=== PATIENT | female | born 1955 | race Caucasian/White ===

== ENCOUNTER 2017-11-21 15:24 | Emergency (ER) | payer MEDICARE, MEDICAID ==
[~2017-11-21] VITALS: Ht 160 cm; Wt 105.2 kg
[~2017-11-21 15:24] MED LIST: CYMBALTA60 MG PO; FLONASE 0.05%50 MCG NASAL; HYDROXYCHLOROQ200 M1 PO; HYDROXYZINE HCL25 M1 PO; LEVAQUIN 500 M500 M2 PO; MOBIC7.5 MG PO; OMEPRAZOLE20 M1 PO; PREDNISONE 10 M10 MG PO; PROAIR HFA8.5 GM INH; PROMETHAZINE D480 ML PO; TRAMADOL 50 MG50 MG PO; TRAZODONE HCL50 MG; ZPAK PO
[2017-11-21] MEDS ORDERED: CYMBALTA60 MG PO (15:49)
[2017-11-21 17:32] VITALS: BP 153/72
== END 2017-11-21 17:33 | disposition home or self-care (01) ==
LOC: M.ERS 15:24
DX: M54.5 Low back pain (principal); J45.909 Unspecified asthma, uncomplicated; M19.90 Unspecified osteoarthritis, unspecified site; K21.9 Gastro-esophageal reflux disease without esophagitis; Z88.6 Allergy status to analgesic agent; F17.210 Nicotine dependence, cigarettes, uncomplicated; Z88.8 Allergy status to other drugs, medicaments and biological substances

== ENCOUNTER 2018-04-28 20:28 | Emergency (ER) | payer MEDICARE, MEDICAID ==
[~2018-04-28] VITALS: Ht 160 cm; Wt 106.6 kg
[2018-04-28] MEDS ORDERED: NORCO 5-325 TA1 EAC1 PO (20:48)
[2018-04-28 21:23] VITALS: BP 166/80
== END 2018-04-28 21:24 | disposition home or self-care (01) ==
LOC: M.ERS 20:28
DX: T22.111A Burn of first degree of right forearm, initial encounter (principal); T31.0 Burns involving less than 10% of body surface; F17.210 Nicotine dependence, cigarettes, uncomplicated; J45.909 Unspecified asthma, uncomplicated; M19.90 Unspecified osteoarthritis, unspecified site; K21.9 Gastro-esophageal reflux disease without esophagitis; Z91.040 Latex allergy status; Z88.8 Allergy status to other drugs, medicaments and biological substances; Z91.011 Allergy to milk products; X12.XXXA Contact with other hot fluids, initial encounter; Y93.89 Activity, other specified; Y92.098 Other place in other non-institutional residence as the place of occurrence of the external cause; Y99.8 Other external cause status

== ENCOUNTER 2018-07-02 17:02 | Emergency (ER) | payer MEDICARE, MEDICAID ==
[~2018-07-02] VITALS: Ht 160 cm; Wt 104.3 kg
[~2018-07-02 17:02] MED LIST changes: +NORCO 5-325 TA1 EAC1 PO
[2018-07-02] MEDS ORDERED: HYDROXYZINE HCL25 M1 PO (17:20)
[2018-07-02] MEDS ORDERED: PENICILLIN VK500 M1 PO (18:56)
[2018-07-02 19:16] VITALS: BP 172/84
== END 2018-07-02 19:17 | disposition home or self-care (01) ==
LOC: M.ERS 17:02
DX: J02.0 Streptococcal pharyngitis (principal); J45.909 Unspecified asthma, uncomplicated; K21.9 Gastro-esophageal reflux disease without esophagitis; M79.7 Fibromyalgia; M16.0 Bilateral primary osteoarthritis of hip; F17.210 Nicotine dependence, cigarettes, uncomplicated; Z91.040 Latex allergy status; Z88.6 Allergy status to analgesic agent; Z88.8 Allergy status to other drugs, medicaments and biological substances; Z91.011 Allergy to milk products

== ENCOUNTER 2018-08-14 16:29 | Emergency (ER) | payer MEDICARE, MEDICAID ==
[~2018-08-14] VITALS: Ht 160 cm; Wt 95.3 kg
[~2018-08-14 16:29] MED LIST changes: +PENICILLIN VK500 M1 PO
[2018-08-14] MEDS ORDERED: AVAPRO75 MG PO (16:41)
[2018-08-14 17:51] VITALS: BP 130/62
== END 2018-08-14 17:52 | disposition home or self-care (01) ==
LOC: M.ERS 16:29
DX: S63.591A Other specified sprain of right wrist, initial encounter (principal); J45.909 Unspecified asthma, uncomplicated; K21.9 Gastro-esophageal reflux disease without esophagitis; M79.7 Fibromyalgia; M13.852 Other specified arthritis, left hip; M13.851 Other specified arthritis, right hip; F17.210 Nicotine dependence, cigarettes, uncomplicated; Z91.040 Latex allergy status; Z88.6 Allergy status to analgesic agent; Z88.8 Allergy status to other drugs, medicaments and biological substances; W18.39XA Other fall on same level, initial encounter; Y93.89 Activity, other specified; Y92.89 Other specified places as the place of occurrence of the external cause; Y99.8 Other external cause status

== ENCOUNTER 2019-02-02 14:45 | Emergency (ER) | payer MEDICARE, MEDICAID ==
[~2019-02-02] VITALS: Ht 160 cm; Wt 108.9 kg
[~2019-02-02 14:45] MED LIST changes: +AVAPRO75 MG PO
[2019-02-02 15:27] LABS: URINE BILIRUBIN NEGATIVE (Negative); URINE BLOOD TRACE (Negative); URINE CLARITY CLEAR; URINE COLOR YELLOW; URINE GLUCOSE-RANDOM NEGATIVE (Negative); URINE KETONES NEGATIVE (Negative); URINE LEUKOCYTES-REFLEX NEGATIVE (Negative); URINE NITRITE-REFLEX NEGATIVE (Negative); URINE PROTEIN NEGATIVE (Negative); URINE SPECIFIC GRAVITY <= 1.005 (1.005-1.030); URINE UROBILINOGEN 0.2 E.U./dl (0.2-1.0)
[2019-02-02 15:47] LABS: ABSOLUTE BASOPHILS 0.1 thou/uL (0.0-0.2); ABSOLUTE EOSINOPHILS 0.2 thou/uL (0.0-0.7); ABSOLUTE LYMPHOCYTES 3.2 thou/uL (0.8-5.3); ABSOLUTE MONOCYTES 0.4 thou/uL (0.0-1.2); ABSOLUTE NEUTROPHILS 9.1 thou/uL (1.6-8.1); EOSINOPHILS 1.5 %; HEMATOCRIT 41.8 % (37.0-47.0); HEMOGLOBIN 13.8 gm/dL (12.0-15.0); LYMPHOCYTES 24.2 %; MCH 27.9 pg (26.0-34.0); MCHC 32.9 g/dL (28.0-37.0); MCV 84.6 fL (80.0-100.0); MONOCYTES 3.4 %; MPV 6.9 fl. (7.2-11.1); NUCLEATED RBCS 0 /100WBC; PLATELET COUNT* 357 thou/uL (150-400); POLYS 69.9 %; RBC 4.94 mil/uL (4.20-5.00); RDW-CV 14.3 % (10.5-14.5)
[2019-02-02 15:56] LABS: CALCIUM 8.9 mg/dL (8.5-10.1); CREATININE 0.9 mg/dL (0.6-1.3); POTASSIUM 4.2 mmol/L (3.5-5.1)
[2019-02-02 16:00] LABS: ALBUMIN 3.5 g/dL (3.4-5.0); TOTAL BILIRUBIN 0.3 mg/dL (<0.1-1.0); TOTAL PROTEIN 7.6 g/dL (6.4-8.2)
[2019-02-02] MEDS ORDERED: TRANSDERM-SCOP1 EACH TRANSDERM (16:58)
[2019-02-02] MEDS ORDERED: KEFLEX500 M1 PO (16:58)
[2019-02-02 17:11] VITALS: BP 166/78
== END 2019-02-02 17:12 | disposition home or self-care (01) ==
LOC: M.ERS 14:45
PROVIDERS: Physician Assistant
DX: R51 Headache (principal); R11.2 Nausea with vomiting, unspecified; R42 Dizziness and giddiness; H66.91 Otitis media, unspecified, right ear; J45.909 Unspecified asthma, uncomplicated; M19.90 Unspecified osteoarthritis, unspecified site; K21.9 Gastro-esophageal reflux disease without esophagitis; M79.7 Fibromyalgia; F17.210 Nicotine dependence, cigarettes, uncomplicated; Z91.040 Latex allergy status; Z91.011 Allergy to milk products; Z88.8 Allergy status to other drugs, medicaments and biological substances

== ENCOUNTER 2019-02-11 18:07 | Emergency (ER) | payer MEDICARE, MEDICAID ==
[~2019-02-11] VITALS: Ht 160 cm; Wt 108.9 kg
[~2019-02-11 18:07] MED LIST changes: +KEFLEX500 M1 PO; +TRANSDERM-SCOP1 EACH TRANSDERM
[2019-02-11 18:18] VITALS: BP 167/92
[2019-02-11] MEDS ORDERED: CIPROFLOXIN HC2.5 M1 OPHTHALMIC (19:02)
== END 2019-02-11 19:19 | disposition home or self-care (01) ==
LOC: M.ERS 18:07
DX: S05.02XA Injury of conjunctiva and corneal abrasion without foreign body, left eye, initial encounter (principal); J45.909 Unspecified asthma, uncomplicated; M19.90 Unspecified osteoarthritis, unspecified site; K21.9 Gastro-esophageal reflux disease without esophagitis; M79.7 Fibromyalgia; F17.210 Nicotine dependence, cigarettes, uncomplicated; Z91.040 Latex allergy status; Z88.6 Allergy status to analgesic agent; Z88.8 Allergy status to other drugs, medicaments and biological substances; X58.XXXA Exposure to other specified factors, initial encounter; Y93.9 Activity, unspecified; Y92.89 Other specified places as the place of occurrence of the external cause; Y99.8 Other external cause status

== ENCOUNTER 2019-04-30 16:44 | Emergency (ER) | payer MEDICARE, MEDICAID ==
[~2019-04-30] VITALS: Ht 160 cm; Wt 108.9 kg
[~2019-04-30 16:44] MED LIST changes: +CIPROFLOXIN HC2.5 M1 OPHTHALMIC
[2019-04-30 16:53] VITALS: BP 159/85
[2019-04-30] MEDS ORDERED: AMOXICILLIN875 MG PO (17:37)
== END 2019-04-30 17:48 | disposition home or self-care (01) ==
LOC: M.ERS 16:44
DX: K02.9 Dental caries, unspecified (principal); M79.10 Myalgia, unspecified site; M19.90 Unspecified osteoarthritis, unspecified site; K21.9 Gastro-esophageal reflux disease without esophagitis; J45.909 Unspecified asthma, uncomplicated; K22.719 Barrett's esophagus with dysplasia, unspecified; F17.210 Nicotine dependence, cigarettes, uncomplicated; Z91.040 Latex allergy status; Z88.6 Allergy status to analgesic agent; Z91.011 Allergy to milk products; Z91.048 Other nonmedicinal substance allergy status; Z88.8 Allergy status to other drugs, medicaments and biological substances

== ENCOUNTER 2019-05-05 09:39 | Emergency (ER) | payer MEDICARE, MEDICAID ==
[~2019-05-05] VITALS: Ht 160 cm; Wt 104.3 kg
[~2019-05-05 09:39] MED LIST changes: +AMOXICILLIN875 MG PO
[2019-05-05 09:53] LABS: URINE BILIRUBIN NEGATIVE (Negative); URINE BLOOD TRACE (Negative); URINE COLOR YELLOW; URINE GLUCOSE-RANDOM NEGATIVE (Negative); URINE KETONES NEGATIVE (Negative); URINE LEUKOCYTES-REFLEX NEGATIVE (Negative); URINE NITRITE-REFLEX NEGATIVE (Negative); URINE PROTEIN NEGATIVE (Negative); URINE UROBILINOGEN 0.2 E.U./dl (0.2-1.0)
[2019-05-05 09:55] LABS: URINE CLARITY CLEAR
[2019-05-05 09:58] LABS: ABSOLUTE BASOPHILS 0.1 thou/uL (0.0-0.2); ABSOLUTE EOSINOPHILS 0.2 thou/uL (0.0-0.7); ABSOLUTE LYMPHOCYTES 3.8 thou/uL (0.8-5.3); ABSOLUTE MONOCYTES 0.5 thou/uL (0.0-1.2); ABSOLUTE NEUTROPHILS 8.6 thou/uL (1.6-8.1); BASOPHILS 0.7 %; EOSINOPHILS 1.2 %; HEMATOCRIT 46.6 % (37.0-47.0); HEMOGLOBIN 15.2 gm/dL (12.0-15.0); LYMPHOCYTES 28.6 %; MCH 28.1 pg (26.0-34.0); MCHC 32.7 g/dL (28.0-37.0); MONOCYTES 4.1 %; MPV 6.8 fl. (7.2-11.1); NUCLEATED RBCS 0 /100WBC; PLATELET COUNT* 409 thou/uL (150-400); POLYS 65.4 %; RBC 5.41 mil/uL (4.20-5.00); RDW-CV 14.5 % (10.5-14.5); WBC 13.1 thou/uL (4.0-11.0)
[2019-05-05 10:07] LABS: ANION GAP 7 mmol/L (7-16); BUN 9 mg/dL (7-18); CALCIUM 9.1 mg/dL (8.5-10.1); CHLORIDE 102 mmol/L (98-107); CO2 31 mmol/L (21-32); GLUCOSE 150 mg/dL (70-99); POTASSIUM 4.2 mmol/L (3.5-5.1); SODIUM 140 mmol/L (136-145)
[2019-05-05 10:16] LABS: ALBUMIN 3.9 g/dL (3.4-5.0); ALKALINE PHOSPHATASE 95 U/L (46-116); LIPASE 137 U/L (73-393); SGOT 16 U/L (15-37); SGPT 29 U/L (30-65); TOTAL BILIRUBIN 0.3 mg/dL (<0.1-1.0); TOTAL PROTEIN 8.3 g/dL (6.4-8.2); TROPONIN-I LEVEL <0.06 ng/mL (<0.06)
[2019-05-05] MEDS ORDERED: ZOFRAN ODT4 MG SUBLING (11:07)
[2019-05-05] MEDS ORDERED: NORCO 5-325 TA1 EAC1 PO (11:07)
[2019-05-05 11:12] VITALS: BP 138/58
--- NOTE | 2019-05-06 07:38 | EKG ---
[place] [address] ELECTROCARDIOGRAM REPORT Name: JESSEE VALENTINEDY FAVIO Room: [facility]#: [id number] Admission: 05/05/19 Attend Phys: Discharge: 05/05/19 Date of : 57 Report #: [id number] THIS REPORT FOR: //name// [facility] ED Test Date: 2019-05-05 Test Time: 09:53:35 Pat Name: MIKAELA VALENTINE Department: Room: Gender: F Vp Security: : 1955 Requested By: Jose Otto Order Number: [id number] MD: Leandro Morris Measurements Intervals Desha Rate: 84 P: 47 MS: 151 QRS: -21 QRSD: 113 T: 50 QT: 442 QTc: 523 Interpretive Statements Sinus rhythm Borderline intraventricular conduction delay Low voltage, precordial leads Borderline repol abnrm, anterolateral leads Prolonged QT interval Compared to ECG 10/24/2016 21:48:26 Low QRS voltage now present Electronically Signed On 05-06-2019 7:38:17 CDT by Leandro Morris [email or web address] <ELECTRONICALLY SIGNED> By: Leandro Morris MD, [facility] 05/06/19 0738 [phone] Leandro Morris MD, [facility] /EPI
== END 2019-05-05 11:12 | disposition home or self-care (01) ==
LOC: M.ERS 09:39
PROVIDERS: Family Medicine
DX: R10.84 Generalized abdominal pain (principal); R11.2 Nausea with vomiting, unspecified; R19.7 Diarrhea, unspecified; J45.909 Unspecified asthma, uncomplicated; M19.90 Unspecified osteoarthritis, unspecified site; K21.9 Gastro-esophageal reflux disease without esophagitis; M79.7 Fibromyalgia; Z91.040 Latex allergy status; Z88.6 Allergy status to analgesic agent; Z88.8 Allergy status to other drugs, medicaments and biological substances; Z91.011 Allergy to milk products

== ENCOUNTER 2019-05-16 01:42 | Inpatient (IN) | payer MEDICARE, MEDICAID ==
[~2019-05-16] VITALS: Ht 160 cm; Wt 111.6 kg
[2019-05-16] VITALS (7 sets, daily range): BP systolic 106–157; BP diastolic 55–80
--- NOTE | ~2019-05-16 | CON ---
[address] [address] CONSULTATION Name: MIKAELA VALENTINE Room: [address] IN M.R.#: [id number] Admission: 05/16/19 Attend Phys: Vicki Lake MD Discharge: Date of : 57 Report #: [id number] THIS REPORT FOR: //name// CC: Ar Joyner Mouse DO Vicki Lake MD DATE OF SERVICE: 05/16/2019 REQUESTING PHYSICIAN: Vicki Lake MD. REASON FOR CONSULT: Abdominal pain, excessive gas and bloating, nausea and vomiting. HISTORY OF PRESENT ILLNESS: This is a 63-year-old female who is known to us, but has not followed up for the past 3 years. Her last upper endoscopy was in May 2016. At that time, she had gastritis and evidence of Cantrell's esophagus. She reports to me that she has been taking double dose of PPI, omeprazole 40 mg b.i.d. She complains of excessive gas and bloating and intermittent diarrhea and constipation. She also complains of occasional nausea and vomiting. She reports that since her GI symptoms were becoming unbearable, she decided to come to the hospital. Since hospitalization, she had blood work and imaging studies. Her CT was significant for mild fatty infiltration of the liver and small umbilical hernia without any evidence of bowel entrapment. There are mild degenerative changes in the lumbar spine. PAST MEDICAL HISTORY: Significant for history of Cantrell's esophagus, dyslipidemia, insomnia, GERD, arthritis, asthma, fibromyalgia, asthma, prolonged QT interval. ALLERGIES: Significant for STATINS, ASPIRIN, LACTASE, AND LATEX. MEDICATIONS: Please refer to MAR. SOCIAL HISTORY: The patient lives at home. She denies alcohol use. FAMILY HISTORY: Negative for GI malignancy. PHYSICAL EXAMINATION: VITAL SIGNS: Reveals blood pressure of 141/80, respiration 18, pulse 67, temperature 98. LUNGS: Clear. CARDIOVASCULAR: Regular. ABDOMEN: Soft, nontender, nondistended[place] [address] CONSULTATION Name: JESSEE VALENTINENERY AGUILARGeorge Room: [address] IN [facility].#: [id number] Admission: 05/16/19 Attend Phys: Vicki Lake MD Discharge: Date of : 57 Report #: [id number] LABORATORY DATA: Reveal sodium of 139, potassium 3.5, BUN is 11, creatinine 0.9, glucose 156, AST 10, ALT is 27, alkaline phosphatase 82. Lipase is 119, WBC is 13 with hemoglobin of 13.5 and platelet of 389. IMAGING: As discussed above. ASSESSMENT AND PLAN: The patient with history of Cantrlel's esophagus, who has intermittent nausea and vomiting, but admits that she is taking double dose of PPI. She also complains of excessive gas, bloating and intermittent diarrhea and constipation with abdominal pain. I will prep her tomorrow for EGD and colonoscopy on Monday morning. I will make further recommendation based on finding. By: [id number] Lewis MD /didi
--- NOTE | ~2019-05-16 | PROC ---
[facility] [address] [place] [address] PROCEDURE REPORT Name: MIKAELA VALENTINE Room: [address] IN M.R.#: [id number] Admission: 05/16/19 Attend Phys: Vicki Lake MD Discharge: 05/18/19 Date of : 57 Report #: [id number] THIS REPORT FOR: //name// For GI report, please see the Provation report in Perceptive 7 content. By: 0639Medical Records Staff YAMILEX /RICCARDO
[~2019-05-16 01:42] MED LIST changes: +HYDROXYZINE HCL25 M2 PO; -TRAZODONE HCL50 MG; +TRAZODONE HCL50 MG PO; +ZOFRAN ODT4 MG SUBLING
[2019-05-16 02:10] LABS: ABSOLUTE BASOPHILS 0.1 thou/uL (0.0-0.2); ABSOLUTE EOSINOPHILS 0.2 thou/uL (0.0-0.7); ABSOLUTE LYMPHOCYTES 4.9 thou/uL (0.8-5.3); ABSOLUTE MONOCYTES 0.5 thou/uL (0.0-1.2); ABSOLUTE NEUTROPHILS 7.2 thou/uL (1.6-8.1); BASOPHILS 1.1 %; EOSINOPHILS 1.6 %; HEMATOCRIT 40.8 % (37.0-47.0); HEMOGLOBIN 13.5 gm/dL (12.0-15.0); LYMPHOCYTES 37.8 %; MCH 28.6 pg (26.0-34.0); MCHC 33.1 g/dL (28.0-37.0); MCV 86.4 fL (80.0-100.0); MONOCYTES 3.6 %; MPV 6.5 fl. (7.2-11.1); NUCLEATED RBCS 0 /100WBC; PLATELET COUNT* 389 thou/uL (150-400); POLYS 55.9 %; RBC 4.72 mil/uL (4.20-5.00); RDW-CV 14.7 % (10.5-14.5)
[2019-05-16 02:19] LABS: ANION GAP 7 mmol/L (7-16); BUN 11 mg/dL (7-18); CALCIUM 8.6 mg/dL (8.5-10.1); CHLORIDE 102 mmol/L (98-107); CO2 30 mmol/L (21-32); CREATININE 0.9 mg/dL (0.6-1.3); GLUCOSE 156 mg/dL (70-99); POTASSIUM 3.5 mmol/L (3.5-5.1); SODIUM 139 mmol/L (136-145)
[2019-05-16 02:28] LABS: ALBUMIN 3.4 g/dL (3.4-5.0); ALKALINE PHOSPHATASE 82 U/L (46-116); LIPASE 119 U/L (73-393); SGOT 10 U/L (15-37); SGPT 27 U/L (30-65); TOTAL BILIRUBIN 0.2 mg/dL (<0.1-1.0); TOTAL PROTEIN 7.3 g/dL (6.4-8.2); TROPONIN-I LEVEL <0.06 ng/mL (<0.06)
--- NOTE | 2019-05-16 06:11 | NUR ---
PT ARRIVED FROM ER AROUND 0500. ASSESSMENT COMPLETED CHARTED. ABLE TO MAKE NEEDS KNOWN. C/O PAIN IN ABDOMEN AND CHEST AND PT REFUSED PAIN MEDICATIONS AT THIS TIME. UP AD JARON. RESTING IN BED AT THIS TIME. WILL CONTINUE TO MONITOR.
--- NOTE | 2019-05-16 12:31 | NUR ---
MET WITH PT TO DISCUSS HOME SITUATION DC PLANNING. PT LIVES WITH S/O LONNIE. SHE IS INDEPENDENT AND ACTIVE. USES NO EQUIPMENT AND HASN'T HAD HH. DISCUSSED DPOA, SHE WILL CONSIDER. PLANS TO RETURN HOME AT DC. WILL FOLLOW
--- NOTE | 2019-05-16 16:48 | NUR ---
ASSUMED CARE OF PT AROUND 0730 THIS AM. REFER TO ASSESSMENT. PT CONTINUES TO HAVE EPIGASTRIC PAIN THIS AM. ORDER OBTAINED FOR GI COCKTAIL AND PT REPORTS IMMEDIATE RELIEF AT TIME OF ADMINISTRATION. NOTED THAT PT NONCOMPLIANT WITH FOLLOW UP TO GI PHYSICIAN OUTPATIENT. PT TO HAVE SCOPE PROCEDURE DURING HOSPITALIZATION. GI PHYSICIAN STATES TO BOWEL PREP PT TOMORROW AND ABLE TO PERFORM COLONOSCOPY/EGD ON MONDAY. NO OTHER CONCERNS AT THIS TIME. CLWR. WCTM.
--- NOTE | 2019-05-16 18:04 | EKG ---
[place] [address] ELECTROCARDIOGRAM REPORT Name: MIKAELA VALENTINE Room: [address] ADM IN .R.#: [id number] Admission: 05/16/19 Attend Phys: Vicki Lake MD Discharge: Date of : 57 Report #: [id number] THIS REPORT FOR: //name// [facility] ED Test Date: 2019-05-16 Test Time: 02:04:56 Pat Name: MIKAELA VALENTINE Department: Room: [facility] Gender: F [employer]: MICHAEL : 1955 Requested By: Armando Mason Order Number: [id number] MD: Efe Cohen Measurements Intervals [place] Rate: 76 P: 33 TX: 167 QRS: -11 QRSD: 88 T: 33 QT: 450 QTc: 507 Interpretive Statements Sinus rhythm Borderline repolarization abnormality Prolonged QT interval Compared to ECG 05/05/2019 09:53:35 No significant changes Electronically Signed On 05-16-2019 18:04:00 CDT by Efe Cohen [email or web address] <ELECTRONICALLY SIGNED> By: Derek Cohen MD, [facility] 05/16/19 [phone] Derek Cohen MD, [facility] /EPI
[2019-05-17 04:00] VITALS: BP 154/78
[2019-05-17 04:47] LABS: HEMATOCRIT 41.1 % (37.0-47.0); HEMOGLOBIN 13.6 gm/dL (12.0-15.0); MCH 28.3 pg (26.0-34.0); MCV 85.7 fL (80.0-100.0); MPV 6.9 fl. (7.2-11.1); RBC 4.8 mil/uL (4.20-5.00); RDW-CV 14.5 % (10.5-14.5); WBC 10.8 thou/uL (4.0-11.0)
[2019-05-17 05:06] LABS: ALBUMIN 3.4 g/dL (3.4-5.0); CALCIUM 8.5 mg/dL (8.5-10.1); CREATININE 0.8 mg/dL (0.6-1.3); POTASSIUM 4.1 mmol/L (3.5-5.1); TOTAL BILIRUBIN 0.4 mg/dL (<0.1-1.0); TOTAL PROTEIN 7.3 g/dL (6.4-8.2)
--- NOTE | 2019-05-17 05:28 | NUR ---
PT IS ABLE TO COMMUNICATE HER NEEDS TO STAFF EFFECTIVELY. CURRENT PAIN MEDICATION REGIMEN HAS BEEN ADEQUATE FOR CONTROLLING HER PAIN UP TO THIS TIME. MED/SURG STATUS, NO TELEMETRY. LIKELY BOWEL PREP LATER TODAY FOR EGD/COLONOSCOPY POSSIBLE TOMORROW.
[2019-05-17 07:00] VITALS: BP 130/55
--- NOTE | 2019-05-17 08:18 | NUR ---
INITAL ASSESSMENT COMPLETED CHARTED. VSS. PT C/O ABD PAIN. M/S STATUS, NOT MONITORED ON TELEMETRY. PT DENIES N/V/D, SOA. PT STATES THAT SHE TOLD THAT SHE ONLY AGREED TO THE EGD PROCEDURE AND NOT A COLONOSCOPY. HOSPITALIST NOTIFIED ON ROUNDS. HOURLY ROUNDING IN PLACE FOR PT SAFETY. CLWR.
[2019-05-17 12:39] VITALS: BP 148/75
[2019-05-17 15:25] VITALS: BP 155/76
[2019-05-17 19:46] VITALS: BP 169/65
--- NOTE | 2019-05-18 02:52 | NUR ---
PT ALERT ORIENTED. TRAMADOL GIVEN HS FOR ABD PAIN. PT SLEEPING. NPO AT MN FOR EGD. MED SURG STATUS.
[2019-05-18 04:00] VITALS: BP 142/39
[2019-05-18 07:00] VITALS: BP 154/89
--- NOTE | 2019-05-18 09:27 | NUR ---
INITAL ASSESSMENT COMPLETED CHARTED. VSS. PT IS M/S STATUS AND NOT MONITORED ON TELEMETRY. PT IS NPO AND AWAITING EGD THIS MORNING. PT C/O ABDOMINAL PAIN. PT DENIES N/V/D, SOA. PT DENIES ANY FURTHER NEEDS AT THIS TIME. HOURLY ROUNDING IN PLACE FOR PT SAFETY. CLWR.
[2019-05-18 10:50] VITALS: BP 120/57
--- NOTE | 2019-05-18 11:02 | NUR ---
PT RETURNED FROMEGD AT APPROXIMATELY 1045. PER GI PT IS OK TO D/C. PT TOLERATING LIQUIDS AND SOLID WITH NO ISSUE SWALLOWING.
[2019-05-18 12:47] VITALS: BP 120/57
--- NOTE | 2019-05-21 17:06 | PATH ---
[address] [address] PATHOLOGY RPT PROCEDURE Name: JESSEE DASILVANERY AGUILARGeorge Room: [address] IN M.R.#: [id number] Admission: 05/16/19 Date of : 57 Discharge: 05/18/19 Report #: [id number] Path Case #: [id number] [facility] Accession Number: [id number] . 01 Material submitted: . esophagus - DISTAL ESOPHAGEAL BIOPSY. Modifiers: distal . 01 Clinical history: . Rule out Cantrell's . 02 Diagnosis: Distal esophageal biopsy: - Benign esophageal and gastric/columnar types mucosa with mild chronic inflammation and hyperkeratosis, typical of reflux, negative for goblet cells/diagnostic Cantrell's metaplasia and dysplasia. . (REDDY:mmhéctor; 05/21/2019) [facility] 05/21/2019 1155 Local . 02 Electronically signed: . Roby Sanders MD, Pathologist NPI- [id number] . 01 Gross description: . The specimen is received in formalin, labeled "Dasilva, Sonia, distal esophageal biopsy" and consists of a fragment of jean-stewart tissue measuring 0.4 x 0.3 x 0.2 cm which is entirely submitted in A1. (SDY; 05/20/2019) [facility]U 05/20/2019 1239 Local . 02 Pathologist provided ICD-10: K20.9 . 02 CPT . 913443 Specimen Comment: A courtesy copy of this report has been sent to Specimen Comment: [phone]. Specimen Comment: Report sent to Performed at: 01 [facility] [address] [place] [address] [address], [place], [place] [id number] MD Hiren Zarate MD Phone: [phone] Performed at: [address] [facility] [address] [address] [place], [place] [id number] MD Roby Sanders MD Phone: [phone]
== END 2019-05-18 13:07 | disposition home or self-care (01) | DRG 381 ==
LOC: M.ERS 01:42 → M.TBA-ER 04:21 → M.2W 04:21
PROVIDERS: Emergency Medicine Emergency Medical Services; Family Medicine; ADMIT Family Medicine
PROC: 0DB48ZX Excision of Esophagogastric Junction, Via Natural or Artificial Opening Endoscopic, Diagnostic (ICD-10-PCS; principal; 2019-05-18)
DX: K22.70 Barrett's esophagus without dysplasia (principal); Z68.41 Body mass index [BMI] 40.0-44.9, adult; R10.9 Unspecified abdominal pain; E66.01 Morbid (severe) obesity due to excess calories; K44.9 Diaphragmatic hernia without obstruction or gangrene; K21.9 Gastro-esophageal reflux disease without esophagitis; M79.7 Fibromyalgia; J45.909 Unspecified asthma, uncomplicated; M19.90 Unspecified osteoarthritis, unspecified site; E78.5 Hyperlipidemia, unspecified; F41.1 Generalized anxiety disorder; F32.9 Major depressive disorder, single episode, unspecified; J44.9 Chronic obstructive pulmonary disease, unspecified; Z91.11 Patient's noncompliance with dietary regimen; Z88.6 Allergy status to analgesic agent; Z91.040 Latex allergy status; Z88.8 Allergy status to other drugs, medicaments and biological substances; Z91.018 Allergy to other foods

== ENCOUNTER 2019-09-07 14:51 | Emergency (ER) | payer MEDICARE, MEDICAID ==
[~2019-09-07] VITALS: Ht 160 cm; Wt 108.0 kg
[2019-09-07] MEDS ORDERED: MELOXICAM7.5 MG PO (15:53)
[2019-09-07 16:31] VITALS: BP 140/60
== END 2019-09-07 16:31 | disposition home or self-care (01) ==
LOC: M.ERS 14:51
DX: S69.81XA Other specified injuries of right wrist, hand and finger(s), initial encounter (principal); M54.10 Radiculopathy, site unspecified; J45.909 Unspecified asthma, uncomplicated; M19.90 Unspecified osteoarthritis, unspecified site; K21.9 Gastro-esophageal reflux disease without esophagitis; M79.7 Fibromyalgia; F17.210 Nicotine dependence, cigarettes, uncomplicated; Z88.6 Allergy status to analgesic agent; Z91.040 Latex allergy status; Z88.8 Allergy status to other drugs, medicaments and biological substances; Z91.011 Allergy to milk products; W23.0XXA Caught, crushed, jammed, or pinched between moving objects, initial encounter; Y93.89 Activity, other specified; Y92.89 Other specified places as the place of occurrence of the external cause; Y99.8 Other external cause status

== ENCOUNTER 2020-06-06 10:44 | Emergency (ER) | payer MEDICARE, MEDICAID ==
[~2020-06-06] VITALS: Ht 160 cm; Wt 108.9 kg
[~2020-06-06 10:44] MED LIST changes: +MELOXICAM7.5 MG PO
[2020-06-06 10:53] VITALS: BP 163/74
[2020-06-06] MEDS ORDERED: TRAZODONE HCL50 MG PO (10:57)
[2020-06-06] MEDS ORDERED: AUGMENTIN 875-1 EACH PO (11:06)
== END 2020-06-06 11:10 | disposition home or self-care (01) ==
LOC: M.ERS 10:44
DX: H66.93 Otitis media, unspecified, bilateral (principal); B34.9 Viral infection, unspecified; F17.210 Nicotine dependence, cigarettes, uncomplicated; Z91.040 Latex allergy status; Z88.6 Allergy status to analgesic agent; Z88.8 Allergy status to other drugs, medicaments and biological substances; Z91.011 Allergy to milk products

== ENCOUNTER 2021-01-03 20:43 | Emergency (ER) | payer MEDICARE, MEDICAID ==
[~2021-01-03] VITALS: Ht 160 cm; Wt 99.8 kg
[~2021-01-03 20:43] MED LIST changes: +AUGMENTIN 875-1 EACH PO
[2021-01-03] MEDS ORDERED: TRAMADOL 50 MG50 MG PO (20:52)
[2021-01-03 21:42] VITALS: BP 127/85
== END 2021-01-03 21:42 | disposition home or self-care (01) ==
LOC: M.ERS 20:43
DX: R06.02 Shortness of breath (principal); T78.49XA Other allergy, initial encounter; J45.909 Unspecified asthma, uncomplicated; M19.90 Unspecified osteoarthritis, unspecified site; K21.9 Gastro-esophageal reflux disease without esophagitis; M79.7 Fibromyalgia; F17.210 Nicotine dependence, cigarettes, uncomplicated; Z91.040 Latex allergy status; Z88.6 Allergy status to analgesic agent; Z88.8 Allergy status to other drugs, medicaments and biological substances; Z91.011 Allergy to milk products; X58.XXXA Exposure to other specified factors, initial encounter

== ENCOUNTER 2021-01-31 17:36 | Emergency (ER) | payer MEDICARE, MEDICAID ==
[~2021-01-31] VITALS: Ht 160 cm; Wt 112.1 kg
[2021-01-31 18:39] LABS: ABSOLUTE BASOPHILS 0.1 thou/uL (0.0-0.2); ABSOLUTE EOSINOPHILS 0.1 thou/uL (0.0-0.7); ABSOLUTE MONOCYTES 0.3 thou/uL (0.0-1.2); ABSOLUTE NEUTROPHILS 6.9 thou/uL (1.6-8.1); EOSINOPHILS 1.4 %; HEMATOCRIT 38.4 % (37.0-47.0); HEMOGLOBIN 12.5 gm/dL (12.0-15.0); LYMPHOCYTES 28.9 %; MCH 27.7 pg (26.0-34.0); MCHC 32.6 g/dL (28.0-37.0); MCV 85.1 fL (80.0-100.0); MONOCYTES 2.8 %; MPV 6.5 fl. (7.2-11.1); NUCLEATED RBCS 0 /100WBC; PLATELET COUNT* 380 thou/uL (150-400); POLYS 65.9 %; RBC 4.51 mil/uL (4.20-5.00); RDW-CV 14.3 % (10.5-14.5); WBC 10.4 thou/uL (4.0-11.0)
[2021-01-31 18:46] LABS: CALCIUM 8.5 mg/dL (8.5-10.1); CREATININE 0.9 mg/dL (0.6-1.3)
[2021-01-31 18:51] LABS: ALBUMIN 3.2 g/dL (3.4-5.0); TOTAL BILIRUBIN 0.1 mg/dL (<0.1-1.0); TOTAL PROTEIN 7.2 g/dL (6.4-8.2)
[2021-01-31 19:10] VITALS: BP 133/64
== END 2021-01-31 19:10 | disposition home or self-care (01) ==
LOC: M.ERS 17:36
PROVIDERS: Emergency Medicine Emergency Medical Services
DX: M25.571 Pain in right ankle and joints of right foot (principal); M25.572 Pain in left ankle and joints of left foot; J45.909 Unspecified asthma, uncomplicated; M19.90 Unspecified osteoarthritis, unspecified site; M79.7 Fibromyalgia; K21.9 Gastro-esophageal reflux disease without esophagitis; F17.210 Nicotine dependence, cigarettes, uncomplicated; Z91.040 Latex allergy status; Z88.6 Allergy status to analgesic agent; Z88.8 Allergy status to other drugs, medicaments and biological substances

== ENCOUNTER 2021-02-19 19:50 | Emergency (ER) | payer MEDICARE, MEDICAID ==
[~2021-02-19] VITALS: Ht 160 cm; Wt 107.5 kg
[2021-02-19] MEDS ORDERED: AVAPRO 150 MG150 MG PO (20:06)
[2021-02-19] MEDS ORDERED: FORTAMET500 MG PO (20:07)
[2021-02-19] MEDS ORDERED: PIOGLITAZONE30 MG PO (20:07)
[2021-02-19] MEDS ORDERED: PREDNISONE 20 M20 M1 PO (21:11)
[2021-02-19] MEDS ORDERED: MELOXICAM15 MG PO (21:11)
[2021-02-19] MEDS ORDERED: OTHER MISCELL (21:14)
[2021-02-19 21:23] VITALS: BP 135/70
== END 2021-02-19 21:24 | disposition home or self-care (01) ==
LOC: M.ERS 19:50
DX: S80.01XA Contusion of right knee, initial encounter (principal); K21.9 Gastro-esophageal reflux disease without esophagitis; M79.7 Fibromyalgia; J45.909 Unspecified asthma, uncomplicated; Z88.6 Allergy status to analgesic agent; Z91.040 Latex allergy status; Z91.011 Allergy to milk products; Z88.8 Allergy status to other drugs, medicaments and biological substances; Z79.899 Other long term (current) drug therapy; W22.01XA Walked into wall, initial encounter; Y93.89 Activity, other specified; Y92.89 Other specified places as the place of occurrence of the external cause; Y99.8 Other external cause status

== ENCOUNTER 2021-06-26 19:36 | Emergency (ER) | payer MEDICARE, MEDICAID ==
[~2021-06-26] VITALS: Ht 160 cm; Wt 102.1 kg
[~2021-06-26 19:36] MED LIST changes: +AVAPRO 150 MG150 MG PO; +FORTAMET500 MG PO; +MELOXICAM15 MG PO; +OTHER MISCELL; +PIOGLITAZONE30 MG PO; +PREDNISONE 20 M20 M1 PO
[2021-06-26 20:12] LABS: ABSOLUTE BASOPHILS 0.1 thou/uL (0.0-0.2); ABSOLUTE EOSINOPHILS 0.2 thou/uL (0.0-0.7); ABSOLUTE MONOCYTES 0.5 thou/uL (0.0-1.2); ABSOLUTE NEUTROPHILS 7.2 thou/uL (1.6-8.1); BASOPHILS 0.9 %; EOSINOPHILS 1.5 %; HEMATOCRIT 39.7 % (37.0-47.0); HEMOGLOBIN 13.2 gm/dL (12.0-15.0); LYMPHOCYTES 33.3 %; MCH 28.4 pg (26.0-34.0); MCHC 33.2 g/dL (28.0-37.0); MCV 85.7 fL (80.0-100.0); MONOCYTES 3.8 %; MPV 6.5 fl. (7.2-11.1); NUCLEATED RBCS 0 /100WBC; PLATELET COUNT* 391 thou/uL (150-400); POLYS 60.5 %; RBC 4.64 mil/uL (4.20-5.00); RDW-CV 14.3 % (10.5-14.5); WBC 11.9 thou/uL (4.0-11.0)
[2021-06-26 20:16] LABS: CALCIUM 8.6 mg/dL (8.5-10.1); POTASSIUM 3.8 mmol/L (3.5-5.1)
[2021-06-26 20:20] LABS: ALBUMIN 3.4 g/dL (3.4-5.0); TOTAL BILIRUBIN 0.2 mg/dL (<0.1-1.0); TOTAL PROTEIN 7.5 g/dL (6.4-8.2)
[2021-06-26 22:15] LABS: URINE BILIRUBIN NEGATIVE (Negative); URINE BLOOD NEGATIVE (Negative); URINE CLARITY CLEAR; URINE COLOR YELLOW; URINE GLUCOSE-RANDOM NEGATIVE (Negative); URINE KETONES NEGATIVE (Negative); URINE LEUKOCYTES-REFLEX NEGATIVE (Negative); URINE NITRITE-REFLEX NEGATIVE (Negative); URINE PROTEIN NEGATIVE (Negative); URINE UROBILINOGEN 0.2 E.U./dl (0.2-1.0)
[2021-06-26 22:37] VITALS: BP 135/57
--- NOTE | 2021-06-27 10:04 | EKG ---
[place] [address] ELECTROCARDIOGRAM REPORT Name: MEMEMIKAELA Room: [facility]#: [id number] Admission: 06/26/21 Attend Phys: Discharge: 06/26/21 Date of : 57 Date of Service: 06/26/211941 Report #: [id number] THIS REPORT FOR: //name// [facility] ED Test Date: 2021-06-26 Test Time: 19:42:10 Pat Name: MIKAELA VALENTINE Department: Room: Gender: Clinical Ob: : 1955 Requested By: Oumou Ascencio Order Number: [id number] MD: Efe Cohen Measurements Intervals [place] Rate: 71 P: 55 NV: 164 QRS: -18 QRSD: 103 T: 76 QT: 469 QTc: 510 Interpretive Statements Sinus arrhythmia Ventricular premature complex Borderline left axis deviation Low voltage, precordial leads Borderline T wave abnormalities Prolonged QT interval Compared to ECG 05/16/2019 02:04:56 Ventricular premature complex(es) now present Low QRS voltage now present T-wave abnormality now present Sinus rhythm no longer present Electronically Signed On 06-27-2021 10:03:52 CDT by Efe Cohen [email or web address] <ELECTRONICALLY SIGNED> By: Derek Cohen MD, [facility] 06/27/21 1003 41 41 Derek Cohen MD, [facility] /EPI
== END 2021-06-26 22:38 | disposition home or self-care (01) ==
LOC: M.ERS 19:36
PROVIDERS: Personal Emergency Response Attendant
DX: R42 Dizziness and giddiness (principal); R51.9 Headache, unspecified; J45.909 Unspecified asthma, uncomplicated; M19.90 Unspecified osteoarthritis, unspecified site; K21.9 Gastro-esophageal reflux disease without esophagitis; F17.210 Nicotine dependence, cigarettes, uncomplicated; Z79.899 Other long term (current) drug therapy; Z91.040 Latex allergy status; Z88.6 Allergy status to analgesic agent; Z88.8 Allergy status to other drugs, medicaments and biological substances

== ENCOUNTER 2021-11-01 16:51 | Emergency (ER) | payer OTHER, MEDICAID ==
[~2021-11-01] VITALS: Ht 160 cm; Wt 99.8 kg
[2021-11-01] MEDS ORDERED: PROAIR HFA8.5 GM INH (17:05)
[2021-11-01] MEDS ORDERED: NEURONTIN 300M300 M2 PO (17:05)
[2021-11-01 18:05] LABS: INFLUENZA A ANTIGEN Negative (Negative); INFLUENZA B ANTIGEN Negative (Negative)
[2021-11-01 18:29] VITALS: BP 157/85
== END 2021-11-01 18:29 | disposition home or self-care (01) ==
LOC: M.ERS 16:51
PROVIDERS: Student in an Organized Health Care Education/Training Program
DX: J06.9 Acute upper respiratory infection, unspecified (principal); Z20.822 Contact with and (suspected) exposure to COVID-19; B97.89 Other viral agents as the cause of diseases classified elsewhere; J45.909 Unspecified asthma, uncomplicated; M19.90 Unspecified osteoarthritis, unspecified site; K21.9 Gastro-esophageal reflux disease without esophagitis; M79.7 Fibromyalgia; I10 Essential (primary) hypertension; E11.9 Type 2 diabetes mellitus without complications; F17.210 Nicotine dependence, cigarettes, uncomplicated; Z91.040 Latex allergy status; Z88.6 Allergy status to analgesic agent; Z88.8 Allergy status to other drugs, medicaments and biological substances